=== PATIENT | female | born 1980 | race Caucasian/White ===

== ENCOUNTER 2021-08-31 14:40 | Emergency (ER) | payer BC, SELFPAY ==
[2021-08-31] VITALS (10 sets, daily range): BP systolic 115–136; BP diastolic 57–71; PULSE 60–78; RESP 16–40; TEMP 36.9; O2SAT 97–99; BMI 19.5
--- NOTE | 2021-08-31 14:50 | ED_ITS ---
HPI - Allergic Reaction General Chief complaint: Allergic Reaction Stated complaint: Bee sting, states needs Epi pen Time Seen by Provider: 08/31/21 14:42 History of Present Illness HPI narrative: This 41-year-old woman was stung by wasps on her lower extremities multiple times 11:00 a.m. today. She has had pain and swelling in her legs. Symptoms seem to be getting worse over the recent hours and she took 25 mg of Benadryl at around noon and then another 50 mg about an hour prior to arrival here. She says she has a very severe headache and pressure and ringing in her ears. She denies swelling in her mouth or tongue. She denies shortness of breath or wheezing. She denies nausea or vomiting or abdominal pain. She denies fainting or lightheadedness. Denies any other chronic health conditions. She takes prescribed oral control pills and no other medications. Related Data Allergies Allergy/AdvReac Type Severity Reaction Status Date / Time No Known Drug Allergies Allergy Verified 08/31/21 15:09 Review of Systems Review of Systems Narrative: Complete review of systems is negative other than as noted above. Patient History Social History Smoking Status: Current some day smoker Exam Narrative Exam Narrative: GENERAL: Alert, cooperative and in no distress. HEAD: Atraumatic. Normocephalic. EYES: Sclera are clear without icterus. Extraocular movements are full. ENT: No rhinorrhea. Oropharynx is moist. Mouth exam is benign. No swelling of the tongue or posterior pharynx. NECK: Supple. Full range of motion. CARDIOVASCULAR: Normal rate and rhythm without murmur gallop or rub. RESPIRATORY: Clear to auscultation. Breath sounds equal bilaterally. No wheezes, rales, or rhonchi. GASTROINTESTINAL: Abdomen soft, non-tender, nondistended. EXTREMITIES: No edema, full range of motion. No obvious trauma. BACK: Normal inspection, no CVA tenderness. NEURO: Nonfocal examination, normal speech, normal gait. SKIN: She has some smaller wheals on her abdomen and chest as well as some larger wheals on her lower extremity size. PSYCH: Normally oriented. Normal range of affect. Appropriate behavior Initial Vital Signs Initial Vital Signs: Vital Signs Temperature 98.5 F 08/31/21 14:40 Course Course Course Narrative: Upon arrival this woman is in distress and tachypneic but seems very anxious. She has no hemodynamic instability, GI symptoms, respiratory symptoms or mucous membrane swelling. She does say that her lips were little bit swollen earlier but that has resolved spontaneously with the Benadryl. I think her symptoms are limited to the integumentary system. We have epinephrine at the bedside. No additional Benadryl will be given as she has already had 75 mg today. We administered Pepcid 20 mg and Solu-Medrol 125 mg and observe her very closely. I do not think epinephrine is required at this time and I think it will make her feel much worse and without clear-cut and flexes indication I do not think it is indicated. Orders Ordered: Famotidine (Famotidine 20 Mg/2 Ml Vial) 20 mg IV NOW JOSEPH Discontinued Medications Acetaminophen (Acetaminophen 325 Mg Tablet) 975 mg PO NOW ONE Stop: 08/31/21 14:55 Last Admin: 08/31/21 15:04 Dose: 975 mg Documented By: MCKINLEY Methylprednisolone (Methylprednisolone 125 Mg/2 Ml Vial) 125 mg IV NOW ONE Stop: 08/31/21 15:00 Last Admin: 08/31/21 14:55 Dose: 125 mg Documented By: MCKINLEY Reevaluation(s) Reevaluation #1: Current time 4:46 p.m.. She is feeling dramatically better at this time. No additional interventions were required other than what we did initially. Vital Signs Vital signs: Vital Signs - 8 hr 08/31/21 14:40 08/31/21 15:10 08/31/21 15:10 Temperature 98.5 F Pulse Rate 73 74 Respiratory Rate 24 40 H Blood Pressure 136/68 Pulse Oximetry 98 98 Oxygen Delivery Method Room Air 08/31/21 15:15 08/31/21 15:19 08/31/21 15:19 Temperature Pulse Rate 78 71 Respiratory Rate 26 H Blood Pressure 131/62 131/62 Pulse Oximetry 99 99 Oxygen Delivery Method Room Air 08/31/21 15:30 08/31/21 15:30 08/31/21 15:45 Temperature Pulse Rate 67 Respiratory Rate 22 Blood Pressure 119/57 L 128/65 Pulse Oximetry 99 Oxygen Delivery Method 08/31/21 15:45 Temperature Pulse Rate 69 Respiratory Rate 19 Blood Pressure Pulse Oximetry 99 Oxygen Delivery Method MDM - Allergic Reaction MDM Narrative Medical decision making narrative: I think this represents a non anaphylactic severe allergic reaction or reaction to Hymenoptera venom. I think she is safe to go home at this point. Discharge Plan Departure Patient Disposition: Home Clinical Impression: Hymenoptera reaction Instructions: DI for Hives Activity Restrictions/Additional Instructions: Thank you for interesting us with your care today. Obviously you have had a significant reaction to the stings that you had today. I am glad that you were not more affected by them that you were. I recommend Benadryl 50 mg every 6 hours as needed for ongoing itching or hives. You should follow up right away for wheezing, shortness of breath, swelling in your mouth, abdominal pain, nausea, vomiting or fainting. I do not expect any of these will occur. Follow- up with your doctor in the coming days to discuss further evaluation as indicated. Take great care to not exposures self to further Hymenoptera stings if possible.
[2021-08-31] MEDS: methylPREDNISolone 125 MG/2 ML VIAL IV (14:55)
[2021-08-31] MEDS: ACETAMINOPHEN 325 MG TABLET 975 MG PO (15:04)
== END 2021-08-31 17:01 | disposition home or self-care (01) ==
PROVIDERS: Emergency Provider Family Medicine Addiction Medicine
DX: B71.0 Hymenolepiasis (principal); T63.441A Toxic effect of venom of bees, accidental (unintentional), initial encounter
CPT/HCPCS: 96374; 99284; J2930